=== PATIENT | male | born 1945 | race Caucasian/White ===

== ENCOUNTER 2020-09-03 11:42 | Outpatient (RCR) | payer MEDICARE, OTHER, SELFPAY ==
[2019-10-11 12:25] VITALS: BMI 23.7
== END 2020-09-03 23:59 ==
LOC: IMMUN 11:42
PROVIDERS: PCP Internal Medicine; Visit Provider Family Medicine
DX: Z23 Encounter for immunization (principal)
CPT/HCPCS: 0011A; 0012A